=== PATIENT | male | born 1990 | race Two or more races ===

== ENCOUNTER 2024-12-20 04:28 | Emergency (ER) | payer MEDICAID, SELFPAY ==
--- NOTE | 2024-12-20 04:31 | PD.EDADULT ---
ED General RME/HPI General Chief complaint: Chest Pain Stated complaint: ARMPIT PAIN Time Seen by Provider: 12/20/24 04:31 Arrival date/time: 12/20/24 04:28 RME / HPI RME / HPI narrative: Dr. Guan?s Main ED Evaluation: 34yo FORTUNATO from home presents to the ED for a chief complaint of left armpit pain that radiates to his back. Patient states he has been drinking alcohol all day today. Patient reports associated chest pain. Patient denies any N/V/D, fever, chills, abdominal pain or any other associated symptoms. Patient endorses using methamphetamines. He is not on any medications. NKA. Related Data Home Medications ?Medication ?Instructions ?Recorded ?Confirmed No Known Home Medications 08/02/19 06/17/21 Allergies Allergy/AdvReac Type Severity Reaction Status Date / Time acetaminophen (From Tylenol) Allergy Verified 12/20/24 04:41 ibuprofen Allergy Chest Pain Verified 12/20/24 04:41 Review of Systems Review of Systems Systems Reviewed: All systems reviewed, normal except as documented ED Exam Narrative Physical exam: GEN. APPEARANCE: The patient is alert awake oriented X-3 in no distress, lying down comfortably, does not look ill/toxic. Patient has good eye contact. Patient is cooperative. VITALS: All vitals were reviewed and the pulse ox is % on room air which is normal according to my interpretation. HEENT: Normocephalic, atraumatic. Pupils are equal and reactive. Oral mucosa is moist. Patent Nares NECK: Supple, nontender, no thyromegaly, no meningismus, no JVD CHEST: Symmetrical, atraumatic, and with equal expansion , Nontender on palpation no deformity and no crepitus. CARDIOVASCULAR: Heart regular rhythm no murmur or gallop rub or extra beats. LUNGS: Clear to auscultation bilaterally with symmetrical chest rise. No laboring tachypnea or wheezing. No intercostal subcostal retraction. No rales and no rhonchi. ABDOMEN: Soft, flat, nontender to palpation, no guarding or rebound tenderness. There are no abnormal masses palpated. Active and normal bowel sounds. EXTREMITIES: Nontender. No edema. No cyanosis. Patient is able to move all 4 extremities well, with full ROM and good CSM. SKIN: Warm and dry, no jaundice; multiple excoriations to the back and BLE. NEURO: Patient is GONZALEZ x 4, Cranial nerves II through XII grossly intact. There is no focal neurologic deficits noted. GCS is 15, PNS and AUTISM MOTOR SPECIALIST appear grossly intact. PSYCHIATRIC: Patient is in normal mood and affect. Course Quality Measures none Orders Category Date Time Status EKG (ED ONLY) *Do not use* NOW Care 12/20/24 04:32 Completed Encourage Fluid Intake NOW Care 12/20/24 04:32 Active CXR2 [XR chest 2V] Stat Exams 12/20/24 04:32 Taken EKG (ED Only) Stat Exams 12/20/24 04:32 Ordered US abdomen limited Stat Exams 12/20/24 05:35 Ordered CBC Stat Lab 12/20/24 05:07 Completed CMP [Comprehensive Metabolic Panel] Stat Lab 12/20/24 05:07 Completed Troponin I Stat Lab 12/20/24 05:07 Completed Aspirin Chew Med 12/20/24 04:32 Discontinued 81 mg PO X1 ONE LORazepam [Ativan] Med 12/20/24 05:07 Discontinued 0.5 mg PO X1 ONE Vital Signs Vital signs: Vital Signs Temperature 98.2 F 12/20/24 04:32 Pulse Rate 114 H 12/20/24 04:32 Respiratory Rate 19 12/20/24 04:32 Blood Pressure 111/79 12/20/24 04:32 Pulse Oximetry (%) 95 12/20/24 04:32 Discharge Plan Prescriptions/Referrals Prescriptions/Med Rec: No Action No Known Home Medications Referrals: No Primary/Family,Physician [Primary Care Provider] - In 1 week Problem List Clinical Impression: Transaminitis, Polysubstance abuse Patient/Caregiver Discharge Instructions Print Language: Spanish [facility] Narrative [facility] hospital course: Scribe Attestation: 12/20/24 Arlene Coulter am scribing for and in the presence of Dr. Guan. Patient presents with chest pain after having drank alcohol and use methamphetamines. Vital signs and exam as listed. Concern for ACS arrhythmia electrolyte abnormality intoxication among others. Ordered labs EKG chest x-ray. Also ordered aspirin however patient states he is allergic. Given patient is anxious to use methamphetamines provided patient with Ativan. EKG without evidence of tachycardia. No evidence of arrhythmia normal intervals. Labs without any acute significant hematologic abnormality no significant acute electrolyte abnormality. Patient does have a transaminitis with LFTs greater than 300. Ordered right upper quadrant ultrasound. Patient does not have any abdominal pain. At this time she presented transition care to oncoming provider. Patient is pending results of his ultrasound and safe dispo. Clinical Information Provided by patient and EMS Medical Records Reviewed [facility] (Per chart review, patient was seen here on 06/17/21 for anxiety.) Meds/Rx Considered, not Ordered None Labs/Rad/Tests considered, not Ordered None Chronic Illness/Social Conditions which may negatively complicate care or outcome(s)-explain: ETOH/drugs/substance abuse EKG EKG Interpretation narrative: EKG done at 0458, sinus tachycardia, rate of 117, normal intervals, nonspecific ST-T changes, no acute ischemia, according to my interpretation. Lab Interpretation Labs: interpreted by me Lab(s) interpretation(s): CBC normal, AST and ALT are elevated. Imaging Imaging interpretation: interpreted by me Provider imaging interpretation(s): CXR shows no infiltrates, no cardiomegaly, no pleural effusions, according to my interpretation. Medication Administration(s) Medication Administration History Discontinued Medications Aspirin (Aspirin 81 Mg Chew) 81 mg PO X1 ONE Stop: 12/20/24 04:33 Last Admin: 12/20/24 04:55 Dose: Not Given Documented By: Non-Admin Reason: Cancelled by Provider Lorazepam (Lorazepam 0.5 Mg Tablet) 0.5 mg PO X1 ONE Stop: 12/20/24 05:08 Last Admin: 12/20/24 05:37 Dose: 0.5 mg Documented By: KATIA see above Diagnosis Differential diagnosis: ACS, arrhythmia, intoxication, viral syndrome Most likely dx, and/or detailed dx discussion: final dx pending at signout Dispositon Disposition: other (Signed out to oncoming provider at 0600 pending abdominal ultrasound.)
[2024-12-20 04:32] VITALS: BP 111/79; PULSE 114; RESP 19; TEMP 36.8; O2SAT 95
--- NOTE | 2024-12-20 04:32 | XR_ITS ---
Examination: PA lateral chest 2 views TECHNIQUE: Upright PA lateral chest 2 views Date and time: December 20, 2024, 0447 hours INDICATIONS: Left chest pain radiating to the back today. FINDINGS: Normal heart size. Lungs are clear. The osseous structures are intact. IMPRESSION: No active disease.
[2024-12-20 04:33] VITALS: BMI 27.8
[2024-12-20 04:42] VITALS: PULSE 123; RESP 22; O2SAT 98
[2024-12-20 05:18] LABS: Basophils % (Auto) 1 % (0-2.5); Eosinophils # (Auto) 0.2 Thou/mm3 (0.0-0.5); Eosinophils % (Auto) 4 % (0-10); Hematocrit 41.1 % (41.0-53.0); Hemoglobin 14.9 g/dL (13.5-16.0); Immature Granulocytes % (Auto) 0 % (0-0); Immature Granulocytes Auto 0.01 Thou/mm3 (0.00-0.00); Lymphocytes # (Auto) 1.1 Thou/mm3 (1.0-4.8); Lymphocytes % (Auto) 24 % (10-50); Mean Corpuscular HGB Conc 36.3 g/dl (31.0-37.0); Mean Corpuscular Volume 83 fL (80-100); Monocytes # (Auto) 0.3 Thou/mm3 (0.0-0.8); Monocytes % (Auto) 6 % (0-12); Neutrophils % (Auto) 65 % (37-80); Nucleated Red Blood Cell % 0 /100 WBC (0); Platelet Count 107 Thou/mm3 (140-440); RDW Standard Deviation 39.2 fL (35.1-43.9); Red Blood Count 4.96 Miln/mm3 (4.50-5.90); White Blood Count 4.6 Thou/mm3 (3.8-10.6)
[2024-12-20 05:33] LABS: Alanine Aminotransferase 364 U/L (10-49); Albumin, Serum 4.5 gm/dL (3.5-5.0); Albumin/Globulin Ratio 1.6 (1.2-2.2); Alkaline Phosphatase 80 U/L (46-116); Anion Gap 8 (7-16); Aspartate Amino Transferase 396 U/L (0-34); BUN/Creatinine Ratio 5 Ratio (12-20); Bilirubin,Total 1.1 mg/dL (0.3-1.2); Blood Urea Nitrogen < 5 mg/dL (9-23); Calcium 8.8 mg/dL (8.3-10.6); Calcium (Corrected) 8.8 mg/dL (8.5-10.1); Carbon Dioxide 24.3 mMol/L (20.0-31.0); Chloride 108 mMol/L (98-107); Estimated Creatinine Clearance 121.1 mL/min (>60); Globulin 2.9 gm/dL (2.3-3.5); Glucose 98 mg/dL (74-106); Osmolality,Calculated 276 (275-295); Potassium 3.5 mMol/L (3.4-5.1); Sodium 140 mMol/L (136-145); Total Protein 7.4 gm/dL (5.7-8.2); Troponin I < 0.020 ng/mL (0.0-0.045); eGFR > 60 See Note
--- NOTE | 2024-12-20 05:35 | XR_ITS ---
Examination: Abdomen sonogram, Limited Date and time of exam: December 20, 2024, 0551 hours INDICATION: Vomiting beginning 4:00 AM this morning Technique: Real-time johnson scale transabdominal sonographic images of the upper abdomen obtained. Findings: Normal gallbladder. Normal common bile duct 0.37 cm Pancreas obscured by bowel gas Liver 13.9 cm no liver lesions Normal hepatopedal portal venous flow Patent IVC IMPRESSION: Normal gallbladder Normal common bile duct
[2024-12-20] MEDS: LORazepam 0.5 MG TABLET PO (05:37)
[2024-12-20 07:10] LABS: Troponin I < 0.020 ng/mL (0.0-0.045)
== END 2024-12-20 08:21 | disposition home or self-care (01) ==
PROVIDERS: Emergency Provider Emergency Medicine
DX: F19.10 Other psychoactive substance abuse, uncomplicated (principal); R74.01 Elevation of levels of liver transaminase levels; R07.9 Chest pain, unspecified
CPT/HCPCS: 36415; 71046; 76705; 80053; 84484; 85025; 93005; 99284; A9270

== ENCOUNTER 2025-02-07 12:59 | Emergency (ER) | payer MEDICAID, SELFPAY ==
--- NOTE | 2025-02-07 13:03 | EKG_ITS ---
[facility] Test Date: 2025-02-07 Pat Name: KRISTOFER MEDINA Department: Room: - Gender: Male Devops Architect: : 1990 Requested By: ED Temporary Provider Order Number: [id number] Reading MD: ED Temporary Provider Measurements Intervals [place] Rate: 112 P: 45 ME: 137 QRS: 73 QRSD: 89 T: 47 QT: 317 QTc: 433 Interpretive Statements SINUS TACHYCARDIA ABNORMAL RHYTHM ECG Compared to ECG 08/02/2019 07:56:14 No significant changes /store/S0/[id number].pdf
[2025-02-07 13:09] VITALS: BP 133/96; PULSE 115; RESP 20; TEMP 36.6; O2SAT 96
--- NOTE | 2025-02-07 13:10 | XR_ITS ---
Examination: PA lateral chest 2 views TECHNIQUE: Upright PA lateral chest 2 views Date and time: February 07, 2025 1436 hours INDICATIONS: Chest pain beginning today. FINDINGS: Normal heart size Lungs are clear. Osseous structures are intact. IMPRESSION: No active disease.
--- NOTE | 2025-02-07 13:10 | PD.EDRME ---
Rapid Medical Screening Exam RME Arrival date/time: 02/07/25 12:59 34-year-old male with no known medical history presents to the emergency room with a chief complaint of 10 out of 10 sternal chest pain that radiates to his thoracic area of his back x 2 days. Patient states he is methamphetamine last night. I have greeted and performed a focused initial assessment of this patient. A comprehensive ED assessment and evaluation of the patient, analysis of all test results, and completion of the medical decision making process will be conducted by additional ED providers. Chief Complaint: Chest Pain Vital signs reviewed by provider: Yes
--- NOTE | 2025-02-07 14:06 | EDNOTE_ITS ---
<Statement entered by Jazmyne Huang MD - 02/07/25 15:44> As co-signing physician, I was present and available for consult prn. I concur with the plan and care as documented by the midlevel provider. ED General RME/HPI General Chief complaint: Chest Pain Stated complaint: CHEST PAIN X 4 HRS Time Seen by Provider: 02/07/25 13:11 Arrival date/time: 02/07/25 12:59 RME / HPI RME / HPI narrative: 02/07/25 12:59 34-year-old male with no known medical history presents to the emergency room with a chief complaint of 10 out of 10 sternal chest pain that radiates to his thoracic area of his back x 2 days. Patient states he is methamphetamine last night. I have greeted and performed a focused initial assessment of this patient. A comprehensive ED assessment and evaluation of the patient, analysis of all test results, and completion of the medical decision making process will be conducted by additional ED providers. 34-year-old male with past medical history of meth use comes into the ED with chief complaint of chest pain. Patient states that he has left-sided chest pain that radiates to his left rib cage. Patient admitted to taking methamphetamine last night around 11 PM and this morning the chest pain started around 9 AM. He also stated that he has some shortness of breath, but states that it does not worsen or improve with exertion or rest. Patient stating that he feels like his heart is enlarged and that he can . Otherwise denies any other associated symptoms including nausea, vomiting, diaphoresis, abdominal pain. Related Data Home Medications ?Medication ?Instructions ?Recorded ?Confirmed No Known Home Medications 08/02/1905/24 Allergies Allergy/AdvReac Type Severity Reaction Status Date / Time acetaminophen (From Tylenol) Allergy Verified 02/07/25 13:01 ibuprofen Allergy Chest Pain Verified 02/07/25 13:01 Review of Systems Review of Systems Systems Reviewed: All systems reviewed, normal except as documented Past Medical History Past Medical History CARDIAC: Negative Congestive Heart Failure RESPIRATORY: Negative Chronic Obstructive Pulmonary Disease (COPD) GENITOURINARY: Negative Renal Disease ENDOCRINE: Negative Diabetes Mellitus Type 1 or Diabetes Mellitus Type 2 Social History SMOKING STATUS: Never smoker SUBSTANCE USE: marijuana and crack/cocaine OCCUPATION: student Travel History EBOLA RISK: No ED Exam Narrative Physical exam: Gen: A&O X 3, anxious appearing, in moderate distress HEENT: NCAT, EOMI, Pupils reactive BATSHEVA, not icteric. External ears normal. No rhinorrhea. Moist mucous membranes. Neck: Supple, full range of motion, no observable masses, No meningeal sign. Lungs: No Respiratory distress, clear bilateral. CV: RRR, no murmurs. Abdomen: Soft, nondistended, No rebound tenderness. MSK: No joint swelling, no redness, peripheral pulses presents, lumbar with no edema. Skin: No rashes, petechiae, lesions. Neuro: No focal neurological deficits appreciated, sensory and motor intact. Psych: Very anxious and pacing. Course Quality Measures none Orders Category Date Time Status EKG (ED ONLY) *Do not use* NOW Care 02/07/25 13:03 Completed EKG (ED Only) Stat Exams 02/07/25 13:03 Draft XR chest 2V Stat Exams 02/07/25 13:10 Completed B-Type Natriuretic Peptide Stat Lab 02/07/25 13:58 Completed CBC Stat Lab 02/07/25 13:58 Completed Comprehensive Metabolic Panel Stat Lab 02/07/25 13:58 Completed Drug Screen,Urine Stat Lab 02/07/25 14:15 Completed Magnesium Stat Lab 02/07/25 13:58 Completed Partial Thromboplastin Time Stat Lab 02/07/25 13:58 Completed Prothrombin Time with INR Stat Lab 02/07/25 13:58 Completed Troponin I Stat Lab 02/07/25 13:58 Completed Urinalysis Stat Lab 02/07/25 14:15 Completed Acetaminophen Tab [Tylenol Tab] Med 02/07/25 15:11 Discontinued 650 mg PO X1 ONE Morphine Inj Med 02/07/25 15:14 Once 3 mg IM X1 ONE Vital Signs Vital signs: Vital Signs Temperature 97.8 F 02/07/25 13:09 Pulse Rate 115 H 02/07/25 13:09 Respiratory Rate 20 02/07/25 13:09 Blood Pressure 133/96 H 02/07/25 13:09 Pulse Oximetry (%) 96 02/07/25 13:09 Oxygen Delivery Method Room Air 02/07/25 13:09 Discharge Plan Plan Patient Disposition: HOME (Self Care) Prescriptions/Referrals Prescriptions/Med Rec: No Action No Known Home Medications Referrals: No Primary/Family,Physician [Primary Care Provider] - In 1 week Problem List Clinical Impression: Atypical chest pain Patient/Caregiver Discharge Instructions Other Activity Instructions:: Please follow-up primary care physician within 1 to 2 days Recommend outpatient cardiology follow-up for further workup Recommend to avoid all illicit drugs Come back to the ER if symptoms persist or worsen Education Materials: ED Chest Pain, Uncertain Cause Print Language: Russian Stand Alone Forms: [employer] Award Info., Patient Portal Info Letter MDM Narrative MDM hospital course: Patient was seen and evaluated upon arrival by myself. Patient was reluctant to get blood work done as he stated that if they took blood out of him he was going to . It was deteriorated to the patient that this was very unlikely and that we needed blood work in order to properly diagnose him as we needed to rule out an acute [place]. Patient remained reluctant and eventually agreed to provide blood for blood work. EKG did not show any acute ST changes. Patient troponins were negative. Patient's heart score was 0 Patient's troponins were negative after around 5 hours since onset of chest pain therefore will not repeat a second set of troponins. Patient still complaining of chest pain, ordered 3mg of Morphine IM. At this time patient is stable enough to be discharged back home. Will need follow-up with primary care physician. Case disclosed with Attending Dr. Reina Vargas PGY2 Disclaimer: Even though this this note was dictated by speech recognition and even though it was carefully revised there may still be minor errors in golf course designer due to voice recognition software. Medication Administration(s) Medication Administration History Discontinued Medications Acetaminophen (Acetaminophen 325 Mg Tablet) 650 mg PO X1 ONE Stop: 02/07/25 15:12
[2025-02-07 14:23] LABS: Basophils # (Auto) 0.0 Thou/mm3 (0.0-0.2); Basophils % (Auto) 1 % (0-2.5); Eosinophils # (Auto) 0.1 Thou/mm3 (0.0-0.5); Eosinophils % (Auto) 1 % (0-10); Hematocrit 42.7 % (41.0-53.0); Hemoglobin 14.5 g/dL (13.5-16.0); Immature Granulocytes Auto 0.02 Thou/mm3 (0.00-0.00); Lymphocytes # (Auto) 1.5 Thou/mm3 (1.0-4.8); Lymphocytes % (Auto) 20 % (10-50); Mean Corpuscular HGB Conc 34.0 g/dl (31.0-37.0); Mean Corpuscular Hemoglobin 29.1 pg (25.0-35.0); Mean Corpuscular Volume 86 fL (80-100); Monocytes # (Auto) 0.6 Thou/mm3 (0.0-0.8); Monocytes % (Auto) 7 % (0-12); Neutrophils # (Auto) 5.7 Thou/mm3 (1.8-7.7); Neutrophils % (Auto) 71 % (37-80); Nucleated Red Blood Cell # 0.00 Thou/mm3 (0.00-0.00); Nucleated Red Blood Cell % 0 /100 WBC (0); Platelet Count 220 Thou/mm3 (140-440); RDW Standard Deviation 40.9 fL (35.1-43.9); Red Blood Count 4.98 Miln/mm3 (4.50-5.90); White Blood Count 7.9 Thou/mm3 (3.8-10.6)
[2025-02-07 14:39] LABS: INR 1.1 (0.9-1.3); Partial Thromboplastin Time 25.6 Seconds (22.0-36.0); Prothrombin Time 11.5 Seconds (9.0-12.2)
[2025-02-07 14:44] LABS: Collection Type, Urine Clean Catch; Squamous Epithelial Cell,Urine 0 /hpf (0-5)
[2025-02-07 14:48] LABS: B-Type Natriuretic Peptide < 20 pg/mL (0-100)
[2025-02-07 14:50] LABS: Alanine Aminotransferase 32 U/L (10-49); Albumin, Serum 4.6 gm/dL (3.5-5.0); Albumin/Globulin Ratio 1.7 (1.2-2.2); Alkaline Phosphatase 82 U/L (46-116); Anion Gap 10 (7-16); Aspartate Amino Transferase 20 U/L (0-34); BUN/Creatinine Ratio 8 Ratio (12-20); Bilirubin,Total 0.9 mg/dL (0.3-1.2); Blood Urea Nitrogen 11 mg/dL (9-23); Calcium 9.7 mg/dL (8.3-10.6); Calcium (Corrected) 9.7 mg/dL (8.5-10.1); Carbon Dioxide 24.0 mMol/L (20.0-31.0); Chloride 106 mMol/L (98-107); Creatinine (Component) 1.3 mg/dL (0.6-1.3); Globulin 2.7 gm/dL (2.3-3.5); Glucose 100 mg/dL (74-106); Magnesium 1.7 mg/dL (1.6-2.6); Osmolality,Calculated 278 (275-295); Potassium 4.0 mMol/L (3.4-5.1); Sodium 140 mMol/L (136-145); Total Protein 7.3 gm/dL (5.7-8.2); Troponin I < 0.002 ng/mL (0.0-0.045); eGFR > 60 See Note
[2025-02-07 14:57] LABS: Bilirubin,Urine Negative (Negative); Blood,Urine Negative (Negative); Clarity,Urine Clear (Clear/Hazy); Color,Urine Yellow (Lt Yel-Yel); Glucose, Urine Negative (Negative); Ketones,Urine Negative (Negative); Leukocyte Esterase,Urine Negative (Negative); Nitrite,Urine Negative (Negative); PH,Urine 6.5 (5.0-7.0); Protein,Urine Negative (Neg - Trace); RBC,Urine 2 /hpf (0-3); Specific Gravity,Urine 1.026 (1.001-1.035); Urobilinogen,Urine Negative mg/dL (0.0-1.0); WBC,Urine 1 /hpf (0-5)
[2025-02-07 15:10] LABS: Amphetamine/Methamp Scrn,U Positive (Negative); Barbiturate Screen,Urine Negative (Negative); Benzodiazepines Screen,Urine Negative (Negative); Benzoylecgonine Screen, Ur Negative (Negative); Fentanyl Screen,Urine Negative (Negative); Opiate Screen,Urine Negative (Negative); THC Screen,Urine Negative (Negative)
[2025-02-07] MEDS: MORPHINE SULF INJ 10 MG/ML VIAL 3 MG IM (15:21)
--- NOTE | 2025-02-07 16:10 | EKG_ITS ---
[facility] Test Date: 2025-02-07 Pat Name: KRISTOFER MEDINA Department: Room: - Gender: Male Credit Risk Analytics Manager: : 1990 Requested By: Tay Vargas Order Number: [id number] Reading MD: Tay Vargas Measurements Intervals [place] Rate: 111 P: 39 IN: 146 QRS: 75 QRSD: 82 T: 31 QT: 320 QTc: 435 Interpretive Statements SINUS TACHYCARDIA ABNORMAL RHYTHM ECG Compared to ECG 02/07/2025 13:11:53 No significant changes /store/S0/[id number]/[id number].pdf
--- NOTE | 2025-02-07 16:15 | EDNOTE_ITS ---
Emergency Room Addendum Addendum Narrative: Prior to discharging the patient patient states that he had an increase in his chest pain right before he was about to be discharged therefore he was reevaluated. Ordered troponins, EKG, aspirin 162mg, and Ativan 1 mg p.o. to reassess.Again EKG did not show any acute ST changes and T wave inversions. Patient eloped prior to troponins were drawn. Case disclosed with Attending Dr. Huang. Tay Vargas PGY2 Disclaimer: Even though this this note was dictated by speech recognition and even though it was carefully revised there may still be minor errors in cd manufacturing supervisor due to voice recognition software.
[2025-02-07 16:34] VITALS: BP 150/101; PULSE 111; RESP 20; TEMP 36.3; O2SAT 98
[2025-02-07] MEDS: ASPIRIN 81 MG CHEW 162 MG PO (16:44)
--- NOTE | 2025-02-07 17:30 | PC.NURSE ---
CALLED PATIENT IN LOBBY AND OUTSIDE; NO ANSWER.
--- NOTE | 2025-02-07 17:50 | PC.NURSE ---
CALLED PATIENT IN LOBBY AND OUTSIDE; NO ANSWER 2ND TIME.
--- NOTE | 2025-02-07 18:05 | PC.NURSE ---
CALLED PATIENT IN LOBBY AND OUTSIDE; NO ANSWER 3RD TIME. PT ELOPED.
== END 2025-02-07 18:10 | disposition left against medical advice (07) ==
PROVIDERS: Nurse Practitioner Family
DX: R07.89 Other chest pain (principal)
CPT/HCPCS: 36415; 71046; 80053; 80307; 81001; 83735; 83880; 84484; 85025; 85610; 85730; 93005; 96372; 99283; J2270; A9270

== ENCOUNTER 2025-02-22 22:03 | Emergency (ER) | payer MEDICAID, SELFPAY ==
[2025-02-22 22:05] VITALS: BMI 25.1
[2025-02-22 22:09] VITALS: BP 145/92; PULSE 125; RESP 14; TEMP 37; O2SAT 99
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
[2025-02-22] MEDS: LIDOCAINE HCL 1% 20 ML VIAL INFL (22:30)
[2025-02-22] MEDS: AMOXICILLIN/POT CLAV 875 TABLET 1 TAB PO (22:30)
[2025-02-22] MEDS: BACITRACIN OINT 1 GM PACKET TOP (22:31)
[2025-02-22 22:49] VITALS: BP 140/93; PULSE 117; RESP 14; TEMP 37; O2SAT 99
[2025-02-23 00:37] VITALS: PULSE 100; O2SAT 99
== END 2025-02-23 00:38 ==
PROVIDERS: Emergency Provider Emergency Medicine
DX: Z02.89 Encounter for other administrative examinations (principal); S01.01XA Laceration without foreign body of scalp, initial encounter; Y04.0XXA Assault by unarmed brawl or fight, initial encounter
CPT/HCPCS: 12002; 70450; 72125; 90715; 99284; J3490; A9270